=== PATIENT | female | born 1990 | race Caucasian/White ===

== ENCOUNTER 2018-11-28 22:08 | Emergency (ER) | payer OTHER ==
[2018-11-28 22:17] VITALS: BP 108/77
--- NOTE | 2018-11-28 22:18 | Emergency Department Report ---
Blank Doc - Documentation Documentation: 28 y o female presents to ED cc of mid abdominal pain with nausea x 2 days denies f/dysuria, d/v
[2018-11-28 23:17] LABS: HCG Qualitative,Urine Negative (Negative)
[2018-11-28 23:36] LABS: Bilirubin,Urine NEG (Negative); Blood,Urine NEG (Negative); Color,Urine Yellow (Yellow); Mucus,Urine 3+ /HPF; Protein,Urine <15 mg/dL mg/dL (Negative)
== END 2018-11-29 00:20 | disposition left against medical advice (07) ==
LOC: ED 22:08
DX: R10.9 Unspecified abdominal pain (principal); Z53.21 Procedure and treatment not carried out due to patient leaving prior to being seen by health care provider
CPT/HCPCS: 81001; 81025

== ENCOUNTER 2018-12-23 08:05 | Emergency (ER) | payer OTHER ==
[2018-12-23 08:16] VITALS: BP 120/68
[2018-12-23 09:18] LABS: Bacteria,Urine 1+ /HPF (Negative); Mucus,Urine 3+ /HPF
[2018-12-23 09:19] LABS: Bilirubin,Urine NEG (Negative); Blood,Urine NEG (Negative); Color,Urine Yellow (Yellow); HCG Qualitative,Urine Negative (Negative); Protein,Urine <15 mg/dL mg/dL (Negative)
--- NOTE | 2018-12-23 09:43 | Emergency Department Report ---
ED Abdominal Pain HPI - General Chief Complaint: Abdominal Pain Stated Complaint: CHEST/STOMACH PAIN Time Seen by Provider: 12/23/18 08:36 Source: patient Mode of arrival: Ambulatory Limitations: No Limitations - History of Present Illness Initial Comments: 28-year-old female presents to ED with abdominal pain 3 days. Patient states pain is primarily left-sided, with associated back pain. Patient denies fever, nausea, vomiting. Patient also states she is having dysuria and vaginal discharge. Denies urinary frequency, hematuria. MD Complaint: abdominal pain -: days(s) (3) Location: LLQ Radiation: back Migration to: no migration Severity: mild Quality: sharp Consistency: constant Improves With: nothing Worsens With: nothing Associated Symptoms: dysuria. denies: nausea, vomiting, diarrhea, hematuria - Related Data Previous Rx's Medication Instructions Recorded Last Taken Type Acetaminophen [Tylenol Arthritis] 650 mg PO Q6HR PRN #30 tablet.er 06/10/18 Unknown Rx Ibuprofen [Motrin] 600 mg PO Q8H PRN #30 tablet 06/10/[address] [place]/M-Cryst 100 mg PO Q12HR #14 capsule 10/19/18 Unknown Rx [Macrobid CAP] Ondansetron [Zofran Odt] 4 mg PO Q8HR #20 tab.rapdis 10/19/18 Unknown Rx metroNIDAZOLE [Flagyl] 500 mg PO Q12HR 7 Days #14 tab 12/23/18 Unknown Rx Allergies Allergy/AdvReac Type Severity Reaction Status Date / Time No Known Allergies Allergy Verified 11/28/18 22:11 ED Review of Systems ROS: Stated complaint: CHEST/STOMACH PAIN Other details as noted in HPI Comment: All other systems reviewed and negative Constitutional: denies: chills, fever Gastrointestinal: abdominal pain. denies: nausea, vomiting Genitourinary: dysuria, discharge. denies: frequency, hematuria ED Past Medical Hx - Past Medical History Previous Medical History?: Yes Additional medical history: pyloric stenosis - Surgical History Past Surgical History?: No - Social History Smoking Status: Current Some Day Smoker Substance Use Type: None - Medications Home Medications: Home Medications Medication Instructions Recorded Confirmed Last Taken Type Acetaminophen [Tylenol Arthritis] 650 mg PO Q6HR PRN #30 tablet.er 06/10/18 Unknown Rx Ibuprofen [Motrin] 600 mg PO Q8H PRN #30 tablet 06/10/[address] [place]/M-Cryst 100 mg PO Q12HR #14 capsule 10/19/18 Unknown Rx [Macrobid CAP] Ondansetron [Zofran Odt] 4 mg PO Q8HR #20 tab.rapdis 10/19/18 Unknown Rx metroNIDAZOLE [Flagyl] 500 mg PO Q12HR 7 Days #14 tab 12/23/18 Unknown Rx ED Physical Exam - General Limitations: No Limitations General appearance: alert, in no apparent distress - Head Head exam: Present: atraumatic, normocephalic - Eye Eye exam: Present: normal appearance - ENT ENT exam: Present: mucous membranes moist - Respiratory Respiratory exam: Present: normal lung sounds bilaterally. Absent: respiratory distress - Cardiovascular Cardiovascular Exam: Present: regular rate, normal rhythm - GI/Abdominal GI/Abdominal exam: Present: soft. Absent: distended, tenderness - External exam: Present: normal external exam Speculum exam: Present: vaginal discharge, cervical discharge Bi-manual exam: Present: normal bi-manual exam. Absent: cervical motion tendern es, adnexal tenderness, uterine tenderness - Extremities Exam Extremities exam: Present: normal inspection - Back Exam Back exam: Absent: CVA tenderness (R), CVA tenderness (L) - Neurological Exam Neurological exam: Present: alert, oriented X3 - Psychiatric Psychiatric exam: Present: normal affect, normal mood - Skin Skin exam: Present: warm, dry, intact, normal color. Absent: rash ED Course Vital Signs 12/23/18 08:14 Temperature 98.3 F Pulse Rate 61 Respiratory 16 Rate Blood Pressure 120/68 O2 Sat by Pulse 96 Oximetry ED Medical Decision Making - Differential Diagnosis uti, PID, cervicitis, ectopic preg Critical care attestation.: If time is entered above; I have spent that time in minutes in the direct care of this critically ill patient, excluding procedure time. ED Disposition Clinical Impression: Cervicitis, Bacterial vaginosis Disposition: TO HOME OR SELFCARE Is pt being admited?: No Condition: Stable Instructions: Bacterial Vaginosis (ED), Cervicitis (ED) Prescriptions: metroNIDAZOLE [Flagyl] 500 mg PO Q12HR 7 Days #14 tab Referrals: JEFFREY HAMILTON MD [Primary Care Provider] - 3-5 Days [facility] [Provider Group] - 3-5 Days Forms: STI Treatment and Prevention Time of Disposition: 10:57
[2018-12-23] MEDS ORDERED: ROCEPHIN IM ONE (10:36)
[2018-12-23] MEDS ORDERED: XYLOCAINE 1% MPF 5 mL INFILTRATI ONE (10:36)
[2018-12-23] MEDS ORDERED: ZITHROMAX PO ONE (10:37)
== END 2018-12-23 11:13 | disposition home or self-care (01) ==
LOC: ED 08:05
DX: N76.0 Acute vaginitis (principal); N72 Inflammatory disease of cervix uteri; F17.200 Nicotine dependence, unspecified, uncomplicated; Z79.899 Other long term (current) drug therapy
CPT/HCPCS: 81001; 81025; 87086; 87210; 87591; 96372; 99284; J0696

== ENCOUNTER 2019-01-31 20:33 | Emergency (ER) | payer OTHER ==
[2019-01-31] MEDS ORDERED: ANTIVERT PO ONE (21:08)
--- NOTE | 2019-01-31 21:08 | Emergency Department Report ---
HPI - General Chief Complaint: Syncope Time Seen by Provider: 01/31/19 20:55 - HPI HPI: Room 6 The patient is a 28-year-old female presenting with the chief complaint of syncope. The patient states she's had intermittent dizziness and headache for the past 3 days. He states she also stated that all day yesterday secondary to her dizziness. The patient states approximately one hour to arrival she again began to feel dizzy and had a syncopal episode. Patient admits to nausea for the past 3 days but denies vomiting or diarrhea. Patient denies chest pain. Patient denies melena or bright red blood per rectum. I asked how she is feeling down the patient states she feels dizzy. Patient states her dizziness increases whenever she stands or walks Location: [See above] Duration: [See above] Quality: [See above] Severity: [See above] Modifying factors: [see above] Context: [see above] Mode of transportation: [not driving] ED Past Medical Hx - Past Medical History Previous Medical History?: Yes Additional medical history: pyloric stenosis - Surgical History Past Surgical History?: Yes Additional Surgical History: pyloric stenosis - Family History Family history: no significant - Social History Smoking Status: Former Smoker (none 4 months) Substance Use Type: None (denies illicit drug use) - Medications Home Medications: Home Medications Medication Instructions Recorded Confirmed Last Taken Type Acetaminophen [Tylenol Arthritis] 650 mg PO Q6HR PRN #30 tablet.er 06/10/18 Unknown Rx Ibuprofen [Motrin] 600 mg PO Q8H PRN #30 tablet 06/10/18 Unknown Rx Nitrofurantoin Keith/M-Cryst 100 mg PO Q12HR #14 capsule 10/19/18 Unknown Rx [Macrobid CAP] Ondansetron [Zofran Odt] 4 mg PO Q8HR #20 tab.rapdis 10/19/18 Unknown Rx metroNIDAZOLE [Flagyl] 500 mg PO Q12HR 7 Days #14 tab 12/23/18 Unknown Rx levoFLOXacin [Levaquin TAB] 500 mg PO QDAY #10 tablet 02/01/19 Unknown Rx ED Review of Systems ROS: Stated complaint: SYNCOPE Other details as noted in HPI Constitutional: no symptoms reported Eyes: denies: eye pain ENT: denies: throat pain Respiratory: shortness of breath Cardiovascular: denies: chest pain Endocrine: no symptoms reported Gastrointestinal: nausea. denies: vomiting Genitourinary: denies: dysuria Musculoskeletal: denies: back pain Neurological: headache Physical Exam - Physical Exam Vital Signs: Vital Signs 01/31/19 20:42 Temperature 98.1 F Pulse Rate 78 Respiratory 16 Rate Blood Pressure 112/70 Blood Pressure 112/78 [Left] O2 Sat by Pulse 97 Oximetry Physical Exam: GENERAL: The patient is well-developed well-nourished female lying on stretcher not appearing to be in acute distress. [] HEENT: Normocephalic. Atraumatic. Extraocular motions are intact. Patient has moist mucous membranes. NECK: Supple. No midline CHEST/LUNGS: Clear to auscultation. There is no respiratory distress noted. HEART/CARDIOVASCULAR: Regular. There is no tachycardia. There is no gallop rub or murmur. ABDOMEN: Abdomen is soft, nontender. Patient has normal bowel sounds. There is no abdominal distention. SKIN: There is no rash. There is no edema. There is no diaphoresis. NEURO: The patient is awake, alert, and oriented. The patient is cooperative. The patient has no focal neurologic deficits. The patient has normal speech. Cranial nerves II through XII grossly intact, no drift MUSCULOSKELETAL: There is no evidence of acute injury. ED Course Vital Signs 01/31/19 20:42 Temperature 98.1 F Pulse Rate 78 Respiratory 16 Rate Blood Pressure 112/70 Blood Pressure 112/78 [Left] O2 Sat by Pulse 97 Oximetry ED Medical Decision Making - Lab Data Result diagrams: 01/31/19 21:13 01/31/19 21:13 Laboratory Tests 01/31/19 01/31/19 01/31/19 21:13 21:13 21:13 WBC 5.8 RBC 3.90 Hgb 12.0 Hct 35.1 MCV 90 MCH 31 MCHC 34 RDW 12.6 L Plt Count 184 Lymph % (Auto) 13.9 Keith % (Auto) 15.3 H Eos % (Auto) 0.4 Baso % (Auto) 0.6 Lymph # 0.8 L Keith # 0.9 H Eos # 0.0 Baso # 0.0 Seg Neutrophils % 69.8 Seg Neutrophils # 4.1 D-Dimer 561.76 H Sodium 136 L Potassium 4.6 Chloride 102.4 Carbon Dioxide 24 Anion Gap 14 BUN 12 Creatinine 0.6 L Estimated GFR > 60 BUN/Creatinine Ratio 20 Glucose 103 H Calcium 8.2 L Total Bilirubin 0.80 AST 12 ALT 7 Alkaline Phosphatase 38 Total Creatine Kinase 56 CK-MB (CK-2) < 1.0 CK-MB (CK-2) Rel Index 1.7 Troponin T < 0.010 NT-Pro-B Natriuret Pep 56.01 Total Protein 6.8 Albumin 3.3 L Albumin/Globulin Ratio 0.9 TSH Free T4 HCG, Qual Urine Color Urine Turbidity Urine pH Ur Specific [place] Urine Protein Urine Glucose (UA) Urine Ketones Urine Blood Urine Nitrite Urine Bilirubin Urine Urobilinogen Ur Leukocyte Esterase Urine WBC (Auto) Urine RBC (Auto) U Epithel Cells (Auto) Urine Bacteria (Auto) Urine WBC Clumps Urine Mucus Urine Opiates Screen Urine Methadone Screen Ur Barbiturates Screen Ur Phencyclidine Scrn Ur Amphetamines Screen U Benzodiazepines Scrn Urine Cocaine Screen U Marijuana (THC) Screen Drugs of Abuse Note 01/31/19 01/31/19 01/31/19 21:13 21:13 21:55 WBC RBC Hgb Hct MCV MCH MCHC RDW Plt Count Lymph % (Auto) Keith % (Auto) Eos % (Auto) Baso % (Auto) Lymph # Keith # Eos # Baso # Seg Neutrophils % Seg Neutrophils # D-Dimer Sodium Potassium Chloride Carbon Dioxide Anion Gap BUN Creatinine Estimated GFR BUN/Creatinine Ratio Glucose Calcium Total Bilirubin AST ALT Alkaline Phosphatase Total Creatine Kinase CK-MB (CK-2) CK-MB (CK-2) Rel Index Troponin T NT-Pro-B Natriuret Pep Total Protein Albumin Albumin/Globulin Ratio TSH 0.904 Free T4 0.88 HCG, Qual Negative Urine Color Brenda Urine Turbidity Slightly-cloudy Urine pH 6.0 Ur Specific [place] 1.019 Urine Protein 100 mg/dl Urine Glucose (UA) Neg Urine Ketones Tr Urine Blood Lg Urine Nitrite Neg Urine Bilirubin Neg Urine Urobilinogen 4.0 Ur Leukocyte Esterase Mod Urine WBC (Auto) 124.0 H Urine RBC (Auto) 7.0 U Epithel Cells (Auto) 7.0 Urine Bacteria (Auto) 2+ Urine WBC Clumps 2+ Urine Mucus 3+ Urine Opiates Screen Urine Methadone Screen Ur Barbiturates Screen Ur Phencyclidine Scrn Ur Amphetamines Screen U Benzodiazepines Scrn Urine Cocaine Screen U Marijuana (THC) Screen Drugs of Abuse Note 01/31/19 21:55 WBC RBC Hgb Hct MCV MCH MCHC RDW Plt Count Lymph % (Auto) Keith % (Auto) Eos % (Auto) Baso % (Auto) Lymph # Keith # Eos # Baso # Seg Neutrophils % Seg Neutrophils # D-Dimer Sodium Potassium Chloride Carbon Dioxide Anion Gap BUN Creatinine Estimated GFR BUN/Creatinine Ratio Glucose Calcium Total Bilirubin AST ALT Alkaline Phosphatase Total Creatine Kinase CK-MB (CK-2) CK-MB (CK-2) Rel Index Troponin T NT-Pro-B Natriuret Pep Total Protein Albumin Albumin/Globulin Ratio TSH Free T4 HCG, Qual Urine Color Urine Turbidity Urine pH Ur Specific [place] Urine Protein Urine Glucose (UA) Urine Ketones Urine Blood Urine Nitrite Urine Bilirubin Urine Urobilinogen Ur Leukocyte Esterase Urine WBC (Auto) Urine RBC (Auto) U Epithel Cells (Auto) Urine Bacteria (Auto) Urine WBC Clumps Urine Mucus Urine Opiates Screen Presumptive negative Urine Methadone Screen Presumptive negative Ur Barbiturates Screen Presumptive negative Ur Phencyclidine Scrn Presumptive negative Ur Amphetamines Screen Presumptive negative U Benzodiazepines Scrn Presumptive negative Urine Cocaine Screen Presumptive negative U Marijuana (THC) Screen Presumptive positive Drugs of Abuse Note Disclamer - EKG Data -: EKG Interpreted by [place] EKG shows normal: sinus rhythm Rate: normal - EKG Data When compared to previous EKG there are: previous EKG unavailable Interpretation: nonspecific ST-T wave damir (flattened T-wave lead aVL) - Radiology Data Radiology results: report reviewed (CT chest, CT head), image reviewed (CT chest, CT head) [place] [address] Cat Scan Report Signed Patient: ANAY IRVIN MR#: [id number] : 1990 Acct:[id number] Age/Sex: 28 / F ADM Date: 01/31/19 Loc: ED Attending Dr: Ordering Physician: GORGE REYES MD Date of Service: 01/31/19 Procedure(s): CT angio chest Accession Number(s): [id number] cc: GORGE REYES MD CT angiography of the chest with 2-D reconstructions INDICATION: Shortness of breath and syncope Thin section axial images were obtained as well as 2-D reformatted MIP images in all 3 planes FINDINGS: There is no hilar or mediastinal adenopathy. No pleural or pericardial effusion. Lung windows show no nodules, masses or infiltrates. There is no thoracic aortic aneurysm or dissection present. Routine axial images as well as 2-D reconstructions through the pulmonary arteries show no evidence of emboli. 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 IMPRESSION: Negative chest CTA Automated exposure control was utilized to diminish radiation dose. Signer Name: Sunny Rice MD Signed: 02/01/2019 12:08 AM Workstation Name: [id number] Transcribed By: CANDIDO Dictated By: Sunny Rice MD Electronically Authenticated By: Sunny Rice MD Signed Date/Time: 02/01/19 0008 DD/ 0003 TD/TT: [facility] [address] [place] [address] Cat Scan Report Signed Patient: AANY IRVIN MR#: [id number] : 1990 Acct:[id number] Age/Sex: 28 / F ADM Date: 01/31/19 Loc: ED Attending Dr: Ordering Physician: GORGE REYES MD Date of Service: 01/31/19 Procedure(s): CT head/brain wo con Accession Number(s): [id number] cc: GORGE REYES MD CT head/brain wo con INDICATION: dizziness, syncope. TECHNIQUE: Routine CT head without contrast. All CT scans at this location are performed using CT dose reduction for ALARA by means of automated exposure control. COMPARISON: None. FINDINGS: BRAIN / INTRACRANIAL CONTENTS: No acute hemorrhage, mass effect, midline shift, or hydrocephalus. No appreciable acute large territorial or lacunar infarct. No chronic infarct or focal atrophy. Normal brain volume and ventricular/sulcal size for age. ORBITS: No significant abnormality of visualized orbits. SINUSES / MASTOIDS: No significant abnormality of visualized sinuses and mastoid air cells. ADDITIONAL FINDINGS: None. IMPRESSION: 1. Negative head CT. Signer Name: Carlyle Preston MD Signed: 01/31/2019 10:20 PM Workstation Name: [id number] Transcribed By: CHIQUIS Dictated By: Carlyle Preston MD Electronically Authenticated By: Carlyle Preston MD Signed Date/Time: 01/31/192219 DD/ 16 TD/TT: - Differential Diagnosis dehydration, vertigo, PE, intracranial mass Critical care attestation.: If time is entered above; I have spent that time in minutes in the direct care of this critically ill patient, excluding procedure time. ED Disposition Clinical Impression: UTI (urinary tract infection), Orthostasis Disposition: - TO HOME OR SELFCARE Is pt being admited?: No Does the pt Need Aspirin: No Condition: Stable Instructions: Urinary Tract Infection in Women (ED) Additional Instructions: Return to the emergency department immediately should you develop worsening symptoms, fever, inability to tolerate food or liquid or any other concerns. Prescriptions: levoFLOXacin [Levaquin TAB] 500 mg PO QDAY #10 tablet Referrals: KINZA REN MD [Staff Physician] - 3-5 Days Time of Disposition: 00:31
[2019-01-31 21:29] LABS: Basophils % (Auto) 0.6 % (0.0-1.8); Eosinophils % (Auto) 0.4 % (0.0-4.3); Hematocrit 35.1 % (30.3-42.9); Lymphocytes # (Auto) 0.8 K/mm3 (1.2-5.4); Lymphocytes % (Auto) 13.9 % (13.4-35.0); Mean Corpuscular HGB Conc 34 % (30-34); Mean Corpuscular Volume 90 fl (79-97); Monocytes # (Auto) 0.9 K/mm3 (0.0-0.8); Monocytes % (Auto) 15.3 % (0.0-7.3); Platelet Count 184 K/mm3 (140-440); Red Cell Distribution Width 12.6 % (13.2-15.2)
[2019-01-31 21:51] LABS: Alanine Aminotransferase 7 units/L (7-56); Albumin 3.3 g/dL (3.9-5); BUN/Creatinine Ratio 20; Blood Urea Nitrogen 12 mg/dL (7-17); Calcium 8.2 mg/dL (8.4-10.2); Hemolysis Index 30
[2019-01-31 22:02] LABS: Free T4 (Free Thyroxine) 0.88 ng/dL (0.76-1.46)
[2019-01-31 22:17] LABS: Creatine Kinase MB < 1.0 ng/mL (0.0-4.0)
--- NOTE | 2019-01-31 22:24 | Cat Scan Report ---
CT head/brain wo con INDICATION: dizziness, syncope. TECHNIQUE: Routine CT head without contrast. All CT scans at this location are performed using CT dos e reduction for ALARA by means of automated exposure control. COMPARISON: None. FINDINGS: BRAIN / INTRACRANIAL CONTENTS: No acute hemorrhage, mass effect, midline shift, or hydrocephalus. No appreciable acute large territorial or lacunar infarct. No chronic infarct or focal atrophy. Normal b rain volume and ventricular/sulcal size for age. ORBITS: No significant abnormality of visualized orbits. SINUSES / MASTOIDS: No significant abnormality of visualized sinuses and mastoid air cells. ADDITIONAL FINDINGS: None. IMPRESSION: 1. Negative head CT. Signer Name: Carlyle Preston MD Signed: 01/31/2019 10:20 PM Workstation Name: [id number]
[2019-01-31 22:56] LABS: Bacteria,Urine 2+ /HPF (Negative); Bilirubin,Urine NEG (Negative); Blood,Urine LG (Negative); Color,Urine Amber (Yellow); Mucus,Urine 3+ /HPF
[2019-01-31 22:57] LABS: Amphetamine Screen,Urine PRESUMPTIVE NEGATIVE; Benzodiazepines Screen,Urine PRESUMPTIVE NEGATIVE; Cocaine Screen,Urine PRESUMPTIVE NEGATIVE; Methadone Screen,Urine PRESUMPTIVE NEGATIVE; Opiate Screen,Urine PRESUMPTIVE NEGATIVE
[2019-01-31 23:10] LABS: Cannabinoid Screen,Urine PRESUMPTIVE POSITIVE
--- NOTE | 2019-02-01 00:12 | Cat Scan Report ---
CT angiography of the chest with 2-D reconstructions INDICATION: Shortness of breath and syncope Thin section axial images were obtained as well as 2-D reformatted MIP images in all 3 planes FINDINGS: There is no hilar or mediastinal adenopathy. No pleural or pericardial effusion. Lung windo ws show no nodules, masses or infiltrates. There is no thoracic aortic aneurysm or dissection present . Routine axial images as well as 2-D reconstructions through the pulmonary arteries show no evidence of emboli. 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 IMPRESSION: Negative chest CTA Automated exposure control was utilized to diminish radiation dose. Signer Name: Sunny Rice MD Signed: 02/01/2019 12:08 AM Workstation Name: [id number]
[2019-02-01] MEDS ORDERED: LEVAQUIN PO ONE (00:26)
[2019-02-01] MEDS ORDERED: NACL 0.9% 1000 ML 1,000 ML IV ONE (00:26)
[2019-02-01 02:17] VITALS: BP 105/83
== END 2019-02-01 02:04 | disposition home or self-care (01) ==
LOC: ED 20:33
DX: N39.0 Urinary tract infection, site not specified (principal); K31.1 Adult hypertrophic pyloric stenosis; Z87.891 Personal history of nicotine dependence; Z79.899 Other long term (current) drug therapy
CPT/HCPCS: 36415; 70450; 71275; 80053; 80307; 81001; 82550; 82553; 83880; 84439; 84443; 84484; 84703; 85025; 85379; 93005; 93010; 96360; 96361; 99285; J7030; Q9967

== ENCOUNTER 2019-04-25 09:21 | Emergency (ER) | payer OTHER ==
[2019-04-25 09:36] VITALS: BP 115/78
[2019-04-25 10:22] LABS: HCG Qualitative,Urine Negative (Negative)
[2019-04-25 10:23] LABS: Bacteria,Urine 1+ /HPF (Negative); Bilirubin,Urine NEG (Negative); Blood,Urine NEG (Negative); Color,Urine Yellow (Yellow); Mucus,Urine FEW /HPF; Protein,Urine <15 mg/dL mg/dL (Negative); Urobilinogen,Urine < 2.0 mg/dL (<2.0)
--- NOTE | 2019-04-25 11:02 | Emergency Department Report ---
ED Abdominal Pain HPI - General Chief Complaint: Abdominal Pain Stated Complaint: ABD PAIN Time Seen by Provider: 04/25/19 09:43 Source: patient Mode of arrival: Ambulatory Limitations: No Limitations - History of Present Illness Initial Comments: The patient is a 28-year-old -[place] female presents today with suprapubic discomfort, nausea, and a past 3 days. No fever, chills or night sweats. LMP 1 month ago. Denies any alleviating or exacerbating factors. Has not taking any medications for symptoms. Denies any precipitating factors. MD Complaint: abdominal pain - Related Data Previous Rx's Medication Instructions Recorded Last Taken Type Acetaminophen [Tylenol Arthritis] 650 mg PO Q6HR PRN #30 tablet.er 06/10/18 Unknown Rx Ibuprofen [Motrin] 600 mg PO Q8H PRN #30 tablet 06/10/18 Unknown Rx Nitrofurantoin [place]/M-Cryst 100 mg PO Q12HR #14 capsule 10/19/18 Unknown Rx [Macrobid CAP] Ondansetron [Zofran Odt] 4 mg PO Q8HR #20 tab.rapdis 10/19/18 Unknown Rx levoFLOXacin [Levaquin TAB] 500 mg PO QDAY #10 tablet 02/01/19 Unknown Rx Ciprofloxacin HCl [Ciprofloxacin 500 mg PO Q12HR 7 Days #14 tab 04/25/19 Unknown Rx TAB] metroNIDAZOLE [Flagyl TAB] 500 mg PO Q12HR 7 Days #14 tab 04/25/19 Unknown Rx Allergies Allergy/AdvReac Type Severity Reaction Status Date / Time No Known Allergies Allergy Verified 11/28/18 22:11 ED Review of Systems ROS: Stated complaint: ABD PAIN Other details as noted in HPI Comment: All other systems reviewed and negative Respiratory: denies: cough, orthopnea Cardiovascular: denies: chest pain, palpitations Gastrointestinal: abdominal pain, nausea. denies: vomiting ED Past Medical Hx - Past Medical History Previous Medical History?: Yes Additional medical history: pyloric stenosis as infant - Surgical History Past Surgical History?: No Additional Surgical History: pyloric stenosis - Family History Family history: diabetes - Social History Smoking Status: Former Smoker Substance Use Type: None - Medications Home Medications: Home Medications Medication Instructions Recorded Confirmed Last Taken Type Acetaminophen [Tylenol Arthritis] 650 mg PO Q6HR PRN #30 tablet.er 06/10/18 Unknown Rx Ibuprofen [Motrin] 600 mg PO Q8H PRN #30 tablet 06/10/18 Unknown Rx Nitrofurantoin [place]/M-Cryst 100 mg PO Q12HR #14 capsule 10/19/18 Unknown Rx [Macrobid CAP] Ondansetron [Zofran Odt] 4 mg PO Q8HR #20 tab.rapdis 10/19/18 Unknown Rx levoFLOXacin [Levaquin TAB] 500 mg PO QDAY #10 tablet 02/01/19 Unknown Rx Ciprofloxacin HCl [Ciprofloxacin 500 mg PO Q12HR 7 Days #14 tab 04/25/19 Unknown Rx TAB] metroNIDAZOLE [Flagyl TAB] 500 mg PO Q12HR 7 Days #14 tab 04/25/19 Unknown Rx ED Physical Exam - General Limitations: No Limitations General appearance: alert, in no apparent distress - Head Head exam: Present: atraumatic, normocephalic - Eye Eye exam: Present: normal appearance, PERRL, EOMI Pupils: Present: normal accommodation - ENT ENT exam: Present: normal exam, normal orophraynx - Neck Neck exam: Present: normal inspection - Respiratory Respiratory exam: Present: normal lung sounds bilaterally - Cardiovascular Cardiovascular Exam: Present: regular rate, normal rhythm - GI/Abdominal GI/Abdominal exam: Present: soft - Extremities Exam Extremities exam: Present: normal inspection - Back Exam Back exam: Present: normal inspection - Neurological Exam Neurological exam: Present: alert, oriented X3, CN II-XII intact - Skin Skin exam: Present: warm ED Course Vital Signs 04/25/19 04/25/19 09:23 09:27 Temperature 98.5 F 98.5 F Pulse Rate 67 67 Respiratory 18 18 Rate Blood Pressure 115/78 115/78 O2 Sat by Pulse 97 97 Oximetry Critical care attestation.: If time is entered above; I have spent that time in minutes in the direct care of this critically ill patient, excluding procedure time. ED Disposition Clinical Impression: UTI (urinary tract infection) Qualifiers: Urinary tract infection type: acute cystitis Hematuria presence: without hematuria Qualified Code(s): N30.00 - Acute cystitis without hematuria Disposition: TO HOME OR SELFCARE Is pt being admited?: No Does the pt Need Aspirin: No Condition: Stable Instructions: Abdominal Pain (ED) Prescriptions: Ciprofloxacin HCl [Ciprofloxacin TAB] 500 mg PO Q12HR 7 Days #14 tab metroNIDAZOLE [Flagyl TAB] 500 mg PO Q12HR 7 Days #14 tab Referrals: PRIMARY CARE, [Primary Care Provider] - 3-5 Days
== END 2019-04-25 11:06 | disposition home or self-care (01) ==
LOC: ED 09:21
DX: N39.0 Urinary tract infection, site not specified (principal); Z87.891 Personal history of nicotine dependence; Z79.899 Other long term (current) drug therapy
CPT/HCPCS: 81001; 81025

== ENCOUNTER 2019-07-13 14:46 | Emergency (ER) | payer OTHER ==
[2019-07-13 16:45] VITALS: BP 106/68
[2019-07-13] MEDS ORDERED: ACETAMINOPHEN 325 MG TAB PO ONE (16:49)
[2019-07-13] MEDS ORDERED: IBUPROFEN 600 MG TAB PO ONE ×2 (16:49→16:51)
--- NOTE | 2019-07-13 16:49 | Event Note ---
ED Screening Note ED Screening Note: stomach pain that began two days ago +nausea no vomiting no diarrhea ear pain +sore throat +fever +urinary frequency dry cough +sick contact PMHx none no allergies to meds LNMP: 07/05/2019 has not taken anything for a temperature This initial assessment/diagnostic orders/clinical plan/treatment(s) is/are subject to change based on patients health status, clinical progression and re- assessment by fellow clinical providers in the ED. Further treatment and workup at subsequent clinical providers discretion. Patient/guardian urged not to elope from the ED as their condition may be serious if not clinically assessed and managed. Initial orders include: rapid flu rapid strep UA, urine preg ibuprofen tylenol
[2019-07-13] MEDS ORDERED: ACETAMINOPHEN 325 MG TAB ONE (16:51)
[2019-07-13 17:47] LABS: HCG Qualitative,Urine Negative (Negative)
[2019-07-13 17:51] LABS: Bilirubin,Urine NEG (Negative); Color,Urine Amber (Yellow)
[2019-07-13 17:52] LABS: Bacteria,Urine 2+ /HPF (Negative); Blood,Urine SM (Negative); Calcium Oxalate Crystals,Urine 3+; Mucus,Urine 3+ /HPF; Protein,Urine <15 mg/dL mg/dL (Negative); Urobilinogen,Urine < 2.0 mg/dL (<2.0)
[2019-07-13] MEDS ORDERED: FAMOTIDINE 20 MG/2 ML INJ IV ONE (19:57)
[2019-07-13] MEDS ORDERED: SODIUM CHLORIDE 0.9% 1000 ML 1,000 ML IV ONE (19:57)
[2019-07-13] MEDS ORDERED: ONDANSETRON 4 MG/2 ML INJ IV ONE (19:57)
[2019-07-13] MEDS ORDERED: cefTRIAXone/NS 1 GM/50 ML 1 GM/50 ML BAG IV ONE (19:58)
[2019-07-13] MEDS ORDERED: BUTALB/ACETAMINOPHEN/CAFFEINE TAB PO ONE (19:58)
--- NOTE | 2019-07-13 20:26 | XRay Report ---
CHEST 2 VIEWS INDICATION / CLINICAL INFORMATION: cough. COMPARISON: None available. FINDINGS: SUPPORT DEVICES: None. HEART / MEDIASTINUM: No significant abnormality. LUNGS / PLEURA: No significant pulmonary or pleural abnormality. No pneumothorax. ADDITIONAL FINDINGS: No significant additional findings. IMPRESSION: 1. No acute findings. Signer Name: Justino Dwyer MD Signed: 07/13/2019 8:22 PM Workstation Name: [id number]
[2019-07-13 20:33] LABS: Basophils % (Auto) 0.8 % (0.0-1.8); Hematocrit 38.2 % (30.3-42.9); Hemoglobin 12.6 gm/dl (10.1-14.3); Lymphocytes # (Auto) 0.7 K/mm3 (1.2-5.4); Lymphocytes % (Auto) 16.5 % (13.4-35.0); Mean Corpuscular HGB Conc 33 % (30-34); Mean Corpuscular Volume 91 fl (79-97); Monocytes # (Auto) 0.3 K/mm3 (0.0-0.8); Monocytes % (Auto) 7.9 % (0.0-7.3); Platelet Count 223 K/mm3 (140-440); Red Cell Distribution Width 12.8 % (13.2-15.2)
[2019-07-13 21:01] LABS: Alanine Aminotransferase 9 units/L (7-56); Albumin 3.9 g/dL (3.9-5); BUN/Creatinine Ratio 10; Blood Urea Nitrogen 7 mg/dL (7-17); Calcium 8.8 mg/dL (8.4-10.2); Hemolysis Index 6
--- NOTE | 2019-07-13 23:27 | Emergency Department Report ---
ED Abdominal Pain HPI - General Chief Complaint: Abdominal Pain Stated Complaint: ABD/EAR PAIN/DIZZY/LIGHT HEADED Time Seen by Provider: 07/13/19 16:45 Source: patient Mode of arrival: Ambulatory Limitations: No Limitations - History of Present Illness Initial Comments: Patient is a A0 29-year-old -[place] female who presents to the ED with complaint of acute onset consistent nausea and vomiting, diffuse abdominal pain, as well as sinus congestion, dry cough, sore throat, headache, dizziness, intermittent fever and chills for the last 2 days. Patient stated that she had not been able to keep anything down in the last 12 hours. Patient denies chest pain, shortness of breath, diarrhea, dysuria, urinary frequency and urgency, change in vision, syncope, palpitations, loss of consciousness, neck pain or vaginal bleeding or vaginal discharge. MD Complaint: abdominal pain, other (Nausea, vomiting, dizziness, bilateral ear pains; fever and chills) -: Sudden, days(s) (2) Location: diffuse Radiation: none Migration to: no migration Severity: moderate Severity scale (0 -10): 6 Quality: cramping, aching, sharp Consistency: intermittent Improves With: nothing Worsens With: nothing Associated Symptoms: denies other symptoms, nausea, vomiting, fever, chills, anorexia. denies: diarrhea, constipation, dysuria, hematemesis, hematochezia, melena, hematuria - Related Data LMP Date: 06/30/19 Previous Rx's Medication Instructions Recorded Last Taken Type Acetaminophen [Tylenol Arthritis] 650 mg PO Q6HR PRN #30 tablet.er 06/10/18 Unknown Rx Ibuprofen [Motrin] 600 mg PO Q8H PRN #30 tablet 06/10/18 Unknown Rx Nitrofurantoin [place]/M-Cryst 100 mg PO Q12HR #14 capsule 10/19/18 Unknown Rx [Macrobid CAP] Ondansetron [Zofran Odt] 4 mg PO Q8HR #20 tab.rapdis 10/19/18 Unknown Rx levoFLOXacin [Levaquin TAB] 500 mg PO QDAY #10 tablet 02/01/19 Unknown Rx Ciprofloxacin HCl [Ciprofloxacin 500 mg PO Q12HR 7 Days #14 tab 04/25/19 Unknown Rx TAB] metroNIDAZOLE [Flagyl TAB] 500 mg PO Q12HR 7 Days #14 tab 04/25/19 Unknown Rx Benzonatate [Tessalon Perles] 100 mg PO Q8HR #30 capsule 07/13/19 Unknown Rx Cetirizine HCl [Zyrtec 10mg tab] 10 mg PO DAILY #30 tablet 07/13/19 Unknown Rx Ibuprofen [Motrin] 600 mg PO Q8H PRN #24 tablet 07/13/19 Unknown Rx Ondansetron [Zofran Odt] 4 mg PO Q6HR PRN #20 tab.rapdis 07/13/19 Unknown Rx cephALEXin [Keflex] 500 mg PO Q6HR #40 capsule 07/13/19 Unknown Rx methylPREDNISolone [Medrol 4MG 4 mg PO DAILY #21 tab.ds.pk 07/13/19 Unknown Rx DOSEPAK (21 tabs)] Allergies Allergy/AdvReac Type Severity Reaction Status Date / Time No Known Allergies Allergy Verified 11/28/18 22:11 ED Review of Systems ROS: Stated complaint: ABD/EAR PAIN/DIZZY/LIGHT HEADED Other details as noted in HPI Constitutional: chills, fever, malaise, weakness Eyes: denies: eye pain, eye discharge, vision change ENT: ear pain, congestion Respiratory: no symptoms reported, cough. denies: shortness of breath, SOB with exertion, SOB at rest Cardiovascular: denies: chest pain, palpitations, dyspnea on exertion, edema Endocrine: no symptoms reported Gastrointestinal: nausea, vomiting. denies: abdominal pain, diarrhea Genitourinary: urgency, frequency. denies: dysuria, discharge Musculoskeletal: arthralgia, myalgia. denies: back pain, joint swelling Skin: denies: rash, lesions Neurological: headache. 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 - Surgical History Past Surgical History?: Yes Additional Surgical History: pyloric stenosis - Social History Smoking Status: Never Smoker Substance Use Type: None - Medications Home Medications: Home Medications Medication Instructions Recorded Confirmed Last Taken Type Acetaminophen [Tylenol Arthritis] 650 mg PO Q6HR PRN #30 tablet.er 06/10/18 Unknown Rx Ibuprofen [Motrin] 600 mg PO Q8H PRN #30 tablet 06/10/18 Unknown Rx Nitrofurantoin [place]/M-Cryst 100 mg PO Q12HR #14 capsule 10/19/18 Unknown Rx [Macrobid CAP] Ondansetron [Zofran Odt] 4 mg PO Q8HR #20 tab.rapdis 10/19/18 Unknown Rx levoFLOXacin [Levaquin TAB] 500 mg PO QDAY #10 tablet 02/01/19 Unknown Rx Ciprofloxacin HCl [Ciprofloxacin 500 mg PO Q12HR 7 Days #14 tab 04/25/19 Unknown Rx TAB] metroNIDAZOLE [Flagyl TAB] 500 mg PO Q12HR 7 Days #14 tab 04/25/19 Unknown Rx Benzonatate [Tessalon Perles] 100 mg PO Q8HR #30 capsule 07/13/19 Unknown Rx Cetirizine HCl [Zyrtec 10mg tab] 10 mg PO DAILY #30 tablet 07/13/19 Unknown Rx Ibuprofen [Motrin] 600 mg PO Q8H PRN #24 tablet 07/13/19 Unknown Rx Ondansetron [Zofran Odt] 4 mg PO Q6HR PRN #20 tab.rapdis 07/13/19 Unknown Rx cephALEXin [Keflex] 500 mg PO Q6HR #40 capsule 07/13/19 Unknown Rx methylPREDNISolone [Medrol 4MG 4 mg PO DAILY #21 tab.ds.pk 07/13/19 Unknown Rx DOSEPAK (21 tabs)] ED Physical Exam - General Limitations: No Limitations General appearance: alert, in no apparent distress - Head Head exam: Present: atraumatic, normocephalic, normal inspection - Eye Eye exam: Present: normal appearance, PERRL, EOMI Pupils: Present: normal accommodation - ENT ENT exam: Present: mucous membranes moist, other (palpable frontal sinus tenderness; grossly congested nasal passages; erythematous oropharynx) - Neck Neck exam: Present: normal inspection, tenderness, full ROM - Respiratory Respiratory exam: Present: normal lung sounds bilaterally. Absent: respiratory distress, wheezes, rales, rhonchi, chest wall tenderness, accessory muscle use, decreased breath sounds - Cardiovascular Cardiovascular Exam: Present: regular rate, normal rhythm, normal heart sounds. Absent: systolic murmur, diastolic murmur, rubs, gallop - GI/Abdominal GI/Abdominal exam: Present: soft, normal bowel sounds. Absent: tenderness, guar ding, hyperactive bowel sounds, hypoactive bowel sounds, organomegaly - Extremities Exam Extremities exam: Present: normal inspection, full ROM, normal capillary refill - Back Exam Back exam: Present: normal inspection, full ROM. Absent: tenderness, CVA tenderness (R), CVA tenderness (L), muscle spasm, paraspinal tenderness - Neurological Exam Neurological exam: Present: alert, oriented X3, CN II-XII intact, normal gait, reflexes normal - Psychiatric Psychiatric exam: Present: normal affect, normal mood - Skin Skin exam: Present: warm, dry, intact, normal color. Absent: rash ED Course Vital Signs 07/13/19 14:54 Temperature 101.8 F H Pulse Rate 86 Respiratory 20 Rate Blood Pressure 106/68 O2 Sat by Pulse 97 Oximetry ED Medical Decision Making - Lab Data Result diagrams: 07/13/19 20:22 07/13/19 20:22 - Radiology Data Radiology results: report reviewed, image reviewed Chest x-ray shows no acute cardiopulmonary abnormalities or pneumonitis. - Medical Decision Making This is a 29-year-old female who presented to the ED with flulike symptoms in the ED, nasal and sinus congestion, dry cough, sore throat, bilateral ear pain, dizziness, diffuse abdominal pain, nausea and vomiting with intermittent fever with chills. In the ED, patient is alert and oriented 3 and is not in d istress. Lantus results were reviewed and are all nonactionable except for urinalysis that showed equivocal urinary tract infection. Patient was treated in the ED for fever, also given antiemetics and normal saline 1 L IV bolus. Patient also received Rocephin 1 g IV. Chest x-ray shows no acute c ardiopulmonary abnormalities or pneumonitis. On reevaluation, patient's fever, nausea and vomiting, abdominal pain and dizziness resolved. Patient was discharged home on medications and advised to follow-up with her primary care physician in 5-7 days for reevaluation. Patient was also advised to return to the ED immediately if symptoms get worse. - Differential Diagnosis Flu like; UTI; Pneumonia; Sinusitis; Strep pharyngitis; URI Critical care attestation.: If time is entered above; I have spent that time in minutes in the direct care of this critically ill patient, excluding procedure time. ED Disposition Clinical Impression: Flu-like symptoms, Acute upper respiratory infection, Nausea and vomiting in adult Acute bronchitis Qualifiers: Bronchitis organism: other organism Qualified Code(s): J20.8 - Acute bronchitis due to other specified organisms UTI (urinary tract infection) Qualifiers: Urinary tract infection type: acute cystitis Hematuria presence: without hematuria Qualified Code(s): N30.00 - Acute cystitis without hematuria Disposition: TO HOME OR SELFCARE Is pt being admited?: No Does the pt Need Aspirin: No Condition: Stable Instructions: Abdominal Pain (ED), Acute Bronchitis (ED), Urinary Tract Infection in Women (ED), Acute Nausea and Vomiting (ED), Fever in Adults (ED) Additional Instructions: Take medications, drink plenty of fluids and follow-up with your primary care physician in 7-10 days for reevaluation. Return to the ED immediately if symptoms get worse. Prescriptions: cephALEXin [Keflex] 500 mg PO Q6HR #40 capsule methylPREDNISolone [Medrol 4MG DOSEPAK (21 tabs)] 4 mg PO DAILY #21 tab.ds.pk Ibuprofen [Motrin] 600 mg PO Q8H PRN #24 tablet PRN Reason: Pain Benzonatate [Tessalon Perles] 100 mg PO Q8HR #30 capsule Ondansetron [Zofran Odt] 4 mg PO Q6HR PRN #20 tab.rapdis PRN Reason: Nausea Cetirizine HCl [Zyrtec 10mg tab] 10 mg PO DAILY #30 tablet Referrals: [facility] [Outside] - 3-5 Days Time of Disposition: 23:34 Print Language: UKRAINIAN
== END 2019-07-14 00:30 | disposition home or self-care (01) ==
LOC: ED 14:46
DX: J20.8 Acute bronchitis due to other specified organisms (principal); N39.0 Urinary tract infection, site not specified; J06.9 Acute upper respiratory infection, unspecified; J11.1 Influenza due to unidentified influenza virus with other respiratory manifestations; Z79.899 Other long term (current) drug therapy
CPT/HCPCS: 36415; 71046; 80053; 81001; 81025; 85025; 87116; 87400; 87430; 96365; 96375; 99284; J0696; J2405; J7030